=== PATIENT | male | born 1950 | race Caucasian/White ===

== ENCOUNTER 2018-02-07 12:55 | Emergency (ER) | payer MEDICARE ==
[~2018-02-07] VITALS: Ht 177.8 cm; Wt 100.0 kg
[~2018-02-07 12:55] MED LIST: ASPIRIN LOW DOS81 M2 PO; BAYER LOW81 MG OR; CEPHALEXIN500 MG PO; DOXYCYCL HYC100 MG PO; ERYTHROMYCIN O3.5 GM OS; FLOMAX0.4 M1 PO; LORTAB 5/3255 MG PO; OMEGA 31000 MG PO; OMEGA 3340 MG OR; PERCOCET 5/325M1 TAB PO; PROTONIX40 M2 OR; PROTONIX40 MG PO
[2018-02-07] MEDS ORDERED: KEFLEX500 M1 PO (14:43)
[2018-02-07] MEDS ORDERED: IBUPROFEN600 MG PO (14:43)
[2018-02-07 14:48] VITALS: BP 137/86
== END 2018-02-07 14:50 | disposition home or self-care (01) ==
LOC: ED 12:55
DX: S61.212A Laceration without foreign body of right middle finger without damage to nail, initial encounter (principal); I10 Essential (primary) hypertension; K21.9 Gastro-esophageal reflux disease without esophagitis; W27.8XXA Contact with other nonpowered hand tool, initial encounter; Y93.89 Activity, other specified; Y92.009 Unspecified place in unspecified non-institutional (private) residence as the place of occurrence of the external cause